=== PATIENT | male | born 1985 ===

== ENCOUNTER 2024-08-09 20:29 | Emergency (ER) | payer BC ==
[~2024-08-09] VITALS: Ht 165.1 cm; Wt 83.9 kg
[2024-08-09 21:12] LABS: BASOPHILS ABSOLUTE AUTO 0.06 K/mm3 (0.00-0.23); BASOPHILS PERCENT AUTO 1 % (0-2); EOSINOPHILS ABSOLUTE AUTO 0.02 K/mm3 (0.00-0.68); EOSINOPHILS PERCENT AUTO 0 % (0-6); Hemoglobin 12.8 g/dL (13.5-17.5); IMMATURE GRAN ABSOLUTE AUTO 0.05 K/mm3 (0.00-0.10); IMMATURE GRAN PERCENT AUTO 1 % (0-1); LYMPHOCYTES ABSOLUTE AUTO 0.86 K/mm3 (0.84-5.20); LYMPHOCYTES PERCENT AUTO 10 % (21-46); MONOCYTES ABSOLUTE AUTO 1.16 K/mm3 (0.16-1.47); MONOCYTES PERCENT AUTO 13 % (4-13); Mean Corpuscular HGB 31.8 pg (26.0-34.0); Mean Corpuscular HGB Conc 34.6 g/dL (31.5-36.5); Mean Corpuscular Volume 92 fL (80-100); Mean Platelet Volume 10.5 fL (9.1-12.4); NEUTROPHILS ABSOLUTE AUTO 6.61 K/mm3 (1.96-9.15); NEUTROPHILS PERCENT AUTO 76 % (41-73); Platelet Count 77 K/mm3 (150-400); RDW Coefficient Variation 13.5 % (11.7-14.2); RDW Standard Deviation 45.3 fL (35.1-46.3); Red Blood Cell Count 4.03 M/mm3 (4.30-5.90); White Blood Cell Count 8.76 K/mm3 (4.00-11.30)
[2024-08-09 21:30] LABS: Albumin, Blood 3.6 g/dL (3.4-5.0); Albumin/Globulin Ratio 0.8 (0.8-1.8); Bun/Creatinine Ratio 10.2 (12.0-20.0); Calcium, Blood 8.1 mg/dL (8.5-10.1); Creatinine, Blood 0.69 mg/dL (0.60-1.20); Globulin, Blood 4.6 g/dL (2.2-4.0); Potassium, Blood 2.9 mmol/L (3.5-5.5); Total Protein, Blood 8.2 g/dL (6.4-8.2)
[2024-08-09 21:35] LABS: Influenza A, PCR NEGATIVE (NEGATIVE); Influenza B, PCR NEGATIVE (NEGATIVE); Resp Syncytial Virus, PCR NEGATIVE (NEGATIVE); SARS-Cov-2 (COVID-19) PCR, MMC NEGATIVE (NEGATIVE)
[2024-08-09 22:16] LABS: Source, Urine Clean Catch
[2024-08-09 22:23] LABS: Bilirubin, Urine Neg (Neg); Blood, Urine Neg (Neg); Glucose Qualitative, Urine Neg (Neg); Ketones, Urine Neg (Neg); Leukocyte Esterase, Urine Neg (Neg); Nitrite, Urine Neg (Neg); Protein, Urine Neg (Neg); Specific Gravity, Urine 1.005 (1.003-1.022); Urobilinogen, Urine 2+ (Normal)
[2024-08-09 22:27] LABS: Appearance, Urine Clear (Clear); Color, Urine Yellow (P-Yellow)
[2024-08-09] MEDS ORDERED: Ketorolac Tromethamine 30mg Vial IV ONE (23:30)
[2024-08-09] MEDS ORDERED: Potassium Chloride 20 MEQ TabCR PO ONE (23:35)
[2024-08-09 23:55] LABS: International Normalized Ratio 1.13; Magnesium, Blood 1.7 mg/dL (1.6-2.4); Phosphorus, Blood 1.9 mg/dL (2.5-4.9)
[2024-08-10] MEDS ORDERED: NS 1,000 ML IV SCH (00:10)
[2024-08-10] MEDS ORDERED: Potassium Phosphate,Monobasic 500 MG Tablet PO ONE (01:35)
[2024-08-10 02:00] VITALS: BP 138/95
[2024-08-10] MEDS ORDERED: Azithromycin 250 MG Tab PO ONE (02:00)
[2024-08-10] MEDS ORDERED: Amoxicillin/Clavulanate K 875 MG Tab PO ONE (02:00)
[2024-08-10] MEDS ORDERED: AZIT250 PO (02:03)
[2024-08-10] MEDS ORDERED: AMOCLA875 PO (02:03)
[2024-08-12 20:49] LABS: HIV 1,2 COMBO ANTIGEN/ANTIBODY Negative (Negative)
== END 2024-08-10 02:12 | disposition home or self-care (01) ==
LOC: ER 20:29
PROVIDERS: Emergency Medicine
DX: J18.9 Pneumonia, unspecified organism (principal); D69.6 Thrombocytopenia, unspecified
CPT/HCPCS: 0241U; 71046; 80053; 81003; 82550; 83605; 83735; 84100; 84145; 85025; 85610; 85730; 87081; 87147; 87389; 87430; 93005; 93010; 96374; 99284-25; A9270; J1885; J7030